=== PATIENT | female | born 1995 | race Caucasian/White ===

== ENCOUNTER 2017-02-15 23:13 | Emergency (ER) | payer SELFPAY | END 2017-02-16 00:14 | disposition home or self-care (01) | LOC: D.ER 23:13 | DX: S61.412A Laceration without foreign body of left hand, initial encounter (principal); W26.0XXA Contact with knife, initial encounter ==

== ENCOUNTER 2017-02-28 18:35 | Emergency (ER) | payer SELFPAY | END 2017-02-28 19:44 | disposition home or self-care (01) | LOC: D.ER 18:35 | DX: S61.412D Laceration without foreign body of left hand, subsequent encounter (principal); X58.XXXD Exposure to other specified factors, subsequent encounter; Y92.89 Other specified places as the place of occurrence of the external cause; Z48.02 Encounter for removal of sutures ==